=== PATIENT | female | born 1975 | race Caucasian/White ===

== ENCOUNTER 2025-04-29 19:08 | Emergency (ER) | payer OTHER ==
[~2025-04-29] VITALS: Ht 162.6 cm; Wt 108.9 kg
[2025-04-29 19:59] LABS: CORONAVIRUS COVID-19 AG POSITIVE (NEGATIVE); STREPTOCOCCUS GRP A ANTIGEN NEGATIVE (NEGATIVE)
[2025-04-29 21:35] VITALS: PULSE 85; RESP 17; TEMP 98
[2025-04-29 21:43] VITALS: BP 154/95; PULSE 85; RESP 17; TEMP 98; O2SAT 97
== END 2025-04-29 21:40 | disposition home or self-care (01) ==
LOC: ER 19:21
DX: R05.9 Cough, unspecified (principal); U07.1 COVID-19; R09.89 Other specified symptoms and signs involving the circulatory and respiratory systems; E66.01 Morbid (severe) obesity due to excess calories; F17.210 Nicotine dependence, cigarettes, uncomplicated
CPT/HCPCS: 71045; 83518; 87070; 99283